=== PATIENT | female | born 1960 | race Caucasian/White ===

== ENCOUNTER 2022-06-27 13:58 | Inpatient (IN) | payer MEDICARE, BC, OTHER ==
[~2022-06-27] VITALS: Ht 175.3 cm; Wt 96.2 kg
--- NOTE | 2022-06-27 14:13 | NUR ---
BIB FAMILY C/O DIZZINESS STATING THAT SHE HAS BEEN VOMITTING BLOOD 3 TIMES SINCE THIS MORNING AT 0900 AND HAVING BLOODY STOOL. PT ATTACHED TO MONITOR AND HYPOTENSIVE, MD DICK. PT STATED THAT SHE HAS STAGE 4 BREAST CANCER, UCURRENTLY TAKING A BREAK FROM CHEMO AND HASNT RECEIVED CHEMO FOR 3 WEEKS. AWAITING MD ORDERS.
--- NOTE | 2022-06-27 14:17 | NUR ---
IV ETSABLISHED L AC 20G. LABS DRAWN AND SENT
[2022-06-27] MEDS ORDERED: ONDANSETRON HCL/PF 4 MG/2 ML VIAL ONE ×2 (14:18→15:16)
--- NOTE | 2022-06-27 14:22 | NUR ---
ADDITIONAL IV ESTBLISHED R CELSO 20G. TERESSA COLLECTED AND SENT.
[2022-06-27] MEDS ORDERED: PANTOPRAZOLE 40 MG VIAL ONE (14:25)
[2022-06-27] MEDS ORDERED: IV NS 0.9% 1,000 ML BAG IV ONE ×2 (14:30→15:00)
[2022-06-27] MEDS ORDERED: PANTOPRAZOLE 40 MG VIAL IV ONE (14:30)
[2022-06-27] MEDS ORDERED: ONDANSETRON HCL/PF 4 MG/2 ML VIAL IVP ONE (14:30)
[2022-06-27 14:31] LABS: BASOPHILS % (AUTO) 0.2 % (0.0-2.0); EOSINOPHILS % (AUTO) 0.5 % (0.0-6.0); HEMATOCRIT 28 % (33-45); HEMOGLOBIN 8.8 g/dL (11.5-14.8); LYMPHOCYTES # (AUTO) 2.4 K/uL (0.8-4.8); LYMPHOCYTES % (AUTO) 21.4 % (20.0-44.0); MEAN CORPUSCULAR HGB CONC 31 g/dl (31.0-36.0); MEAN CORPUSCULAR VOLUME 84 fL (82-100); MONOCYTES # (AUTO) 0.8 K/uL (0.1-1.30); MONOCYTES % (AUTO) 7.4 % (2.0-12.0); NEUTROPHILS # (AUTO) 7.8 K/uL (1.8-8.9); NEUTROPHILS % (AUTO) 70.5 % (43.0-81.0); PLATELET COUNT (AUTO) 191 K/uL (150-450); RED BLOOD CELL COUNT(AUTO) 3.33 MIL/uL (4.0-5.2)
--- NOTE | 2022-06-27 14:37 | NUR ---
PT TAKEN TO CT VIA ERICH
[2022-06-27 14:44] LABS: CALCIUM, SERUM 8.2 mg/dL (8.5-10.1); CARBON DIOXIDE 22 mmol/L (21-32); CHLORIDE 112 mmol/L (98-107); CREATININE 0.9 mg/dL (0.6-1.3); GLUCOSE 140 mg/dL (74-106); POTASSIUM 3.8 mmol/L (3.5-5.1); SODIUM SERUM 143 mmol/L (136-145); UREA NITROGEN, BLOOD 44 mg/dL (7-18)
[2022-06-27 14:50] LABS: ALBUMIN 3.2 g/dL (3.4-5.0); ALKALINE PHOSPHATASE 66 U/L (46-116); ASPARTATE AMINOTRANSFERASE 31 U/L (15-37); BILIRUBIN,DIRECT 0.2 mg/dL (0.0-0.2); BILIRUBIN,TOTAL 0.6 mg/dL (0.2-1.0); LIPASE 333 U/L (73-393); TOTAL PROTEIN, SERUM 7.2 g/dL (6.4-8.2)
[2022-06-27 15:23] LABS: ALANINE AMINOTRANSFERASE 25 U/L (12-78)
[2022-06-27] MEDS ORDERED: MAG HYDROX/AL HYDROX/SIMETH 30 ML UDC PO PRN (16:00)
[2022-06-27] MEDS ORDERED: ONDANSETRON HCL/PF 4 MG/2 ML VIAL IVP PRN (16:00)
[2022-06-27] MEDS ORDERED: ACETAMINOPHEN 325 MG TABLET PO PRN (16:00)
[2022-06-27] MEDS ORDERED: MAGNESIUM HYDROXIDE 30 ML UDC PO PRN (16:00)
[2022-06-27] MEDS ORDERED: ZOLPIDEM TARTRATE 5 MG TABLET PO PRN (16:00)
[2022-06-27] MEDS ORDERED: Z GUARD REMEDY 4 OZ OINT TP PRN (16:00)
[2022-06-27 16:18] LABS: HEMOGLOBIN 7.8 g/dL (11.5-14.8)
[2022-06-27] MEDS ORDERED: NOREPINEPHRINE 8 MG in IV NS 0.9% 242 ML IV PRN (16:30)
--- NOTE | 2022-06-27 17:05 | NUR ---
ROOM GIVEN 262, READY IN 30 MINUTES
--- NOTE | 2022-06-27 17:59 | NUR ---
REPORT GIVEN DANNY FOR CANDIDA
--- NOTE | 2022-06-27 18:46 | NUR ---
PT TRANSFERRED TO ICU WITH ACLS PROTOCOLS IN PLACE
[2022-06-27 19:00] VITALS: BP 115/71
[2022-06-27] MEDS: IV NS 0.9% 1,000 ML IV SCH (19:11)
[2022-06-27 19:30] VITALS: BP 115/71
--- NOTE | 2022-06-27 19:30 | NUR ---
ADMITTED 61 YR OLD FEMALE FROM ER WITH A DX OF UPPER GI BLEED. HX INCLUDES SPINAL STENOSIS, BREAST CA STAGE 4 ON CHEMO (3 WKS BREAK, CA METASTASIZED. PATIENT AWAKE. A/O X4. ON RA. NOT IN DISTRESS. CONTINENT. ON NPO STATUS EXCEPT ICE CHIPS. IV ACCESS ON LT UPPER CHEST PERMACATH, RT HAND #20G AND LAC #20G. STARTED TO INFUSE 0.9 NS AT 75 ML/HR. SKIN CHECK PERFORMED, LESION ON THE FOREHEAD. NO WOUND. V/S CHECKED: HR 133, RR 17, SPO2 99%, BP 115/71. CALL LIGHT WITHIN REACH. SAFETY MEASURES IN PLACE. WILL CONTINUE PLAN OF CARE.
[2022-06-27 20:00] VITALS: BP 115/86
[2022-06-27] MEDS: PANTOPRAZOLE 40 MG VIAL IV SCH (20:50)
[2022-06-27 21:00] VITALS: BP 118/70
[2022-06-27 22:00] VITALS: BP 112/68
[2022-06-27 22:27] LABS: HEMOGLOBIN 6.8 g/dL (11.5-14.8)
--- NOTE | 2022-06-27 22:46 | NUR ---
Hgb 6.8. MD NOTIFIED. ORDERED 1 UNIT PRBC. BLOOD TRANSFUSION CONSENT SIGNED. WILL CARRY OUT ORDERED.
[2022-06-27 23:00] VITALS: BP 106/77
[2022-06-28] VITALS (31 sets, daily range): BP systolic 90–138; BP diastolic 34–98
[2022-06-28 05:12] LABS: CALCIUM, SERUM 7.3 mg/dL (8.5-10.1); CREATININE 0.6 mg/dL (0.6-1.3); MAGNESIUM 1.7 mg/dL (1.8-2.4); PHOSPHORUS 1.8 mg/dL (2.5-4.9); POTASSIUM 3.3 mmol/L (3.5-5.1)
[2022-06-28 05:13] LABS: BASOPHILS % (AUTO) 0.2 % (0.0-2.0); EOSINOPHILS % (AUTO) 0.5 % (0.0-6.0); HEMATOCRIT 20 % (33-45); LYMPHOCYTES # (AUTO) 1.5 K/uL (0.8-4.8); LYMPHOCYTES % (AUTO) 16.2 % (20.0-44.0); MEAN CORPUSCULAR HGB CONC 32 g/dl (31.0-36.0); MEAN CORPUSCULAR VOLUME 84 fL (82-100); MONOCYTES # (AUTO) 0.9 K/uL (0.1-1.30); MONOCYTES % (AUTO) 9.4 % (2.0-12.0); NEUTROPHILS # (AUTO) 6.8 K/uL (1.8-8.9); NEUTROPHILS % (AUTO) 73.7 % (43.0-81.0); PLATELET COUNT (AUTO) 106 K/uL (150-450); RED BLOOD CELL COUNT(AUTO) 2.38 MIL/uL (4.0-5.2); WHITE BLOOD COUNT (AUTO) 9.3 K/uL (4.3-11.0)
[2022-06-28 05:15] LABS: HEMOGLOBIN 6.4 g/dL (11.5-14.8)
--- NOTE | 2022-06-28 05:21 | NUR ---
Hgb 6.4. MD NOTIFIED. ORDERED 1 UNIT PRBC EARLIER. BLOOD TRANSFUSION CONSENT SIGNED. WILL CARRY OUT ONCE PRBC IS READY.
[2022-06-28] MEDS: IV NS 0.9% 1,000 ML IV SCH ×2 (05:24→18:37)
--- NOTE | 2022-06-28 06:49 | NUR ---
Blood transfusion started per protocol and as ordered. Pt tolerating well at this time.
--- NOTE | 2022-06-28 07:30 | NUR ---
PATIENT AWAKE. A/O X4. ON RA. NOT IN DISTRESS. CONTINENT. ON NPO STATUS EXCEPT ICE CHIPS. IV ACCESS ON LT UPPER CHEST PERMACATH, RT HAND #20G AND LAC #20G. INFUSING 0.9 NS AT 75 ML/HR. ONGOING BT. NEEDS ATTENDED. DUE MEDS GIVEN. SAFETY MEASURES MAINTAINED. WILL ENDORSE TO NEXT NURSE ON DUTY FOR CONTINUITY OF CARE.
--- NOTE | 2022-06-28 07:57 | NUR ---
LAUNDRY TECH OPENING NOTES: RECEIVED PATIENT ALERT AND AWAKE, A/O X4. ON RA. NOT IN DISTRESS, NO SOB NOTED, RESPIRATION EVEN AND UNLABORED, DENIES ANY PAIN, PATIENT NOTED WITH BLOOD TRANFUSION ON GOING, CHECK VITAL SIGNS T= 98.2, BP 116/66. ON NPO STATUS EXCEPT ICE CHIPS. IV ACCESS ON LT UPPER CHEST PERMACATH, RT HAND #20G AND LAC #20G. INFUSING 0.9 NS AT 75 ML/HR. SAFETY MEASURES IN PLACED. CALL LIGHT AND TABLE WITHIN REACH. PATIENT CONTINENT TO BOWEL AND BLADDER. ORIENTED THE PATIENT TO USE THE CALL LIGHT WHEN NEEDING TO USE THE BEDSIDE COMMODE. PLAN OF CARE CONTINUE. Addendum: 06/28/22 at 1844 by MARTHA MARTINEZ RN CORRECTION: LEFT UPPER CHEST PORTACATH NOTED INTACT.
[2022-06-28] MEDS: PANTOPRAZOLE 40 MG VIAL IV SCH ×2 (08:14→20:25)
--- NOTE | 2022-06-28 09:09 | NUR ---
RECEIVED NEW ORDER FROM DR. JJ, CHANGED DIET FROM NPO TO CLEAR LIQUID DIET AND HEMOGLOBIN AND HEMATOCRIT Q6HR, NOTED AND CARRIED OUT.
--- NOTE | 2022-06-28 09:33 | NUR ---
BLOOD TRANSFUSION DONE, NO BLOOD TRANSFUSION REACTION NOTED, VS STABLE, PATIENT NOTED EATING BREAKFAST, PATIENT ALERT AND VERBALLY RESPONSIVE, NO NAUSEA/VOMITING NOTED.
[2022-06-28] MEDS ORDERED: CAPE500T15 PO (10:20)
[2022-06-28] MEDS ORDERED: LORA-258 PO (10:20)
[2022-06-28] MEDS ORDERED: ONDA8TAB65 PO (10:20)
[2022-06-28 10:26] LABS: BAND % (MANUAL) 3 % (0.0-5.0); BASOPHILS % (MANUAL) 0 % (0.0-2.0); EOSINOPHILS % (MANUAL) 0 % (0-4); LYMPHOCYTES % (MANUAL) 14 % (16-48); MONOCYTES % (MANUAL) 4 % (0-11.0); NEUTROPHILS % (MANUAL) 79 (42-76)
[2022-06-28] MEDS ORDERED: POTASSIUM CHLORIDE 20 MEQ POWDER PACKET PO ONE (11:00)
[2022-06-28] MEDS ORDERED: LORAZEPAM 0.5 MG TABLET PO PRN (11:00)
[2022-06-28] MEDS: Magnesium 1GM/D5W 100ML PREMIX 100 ML IV SCH ×2 (11:05→12:06)
[2022-06-28] MEDS ORDERED: NEUTRA PHOS 1 POWD.PACKET NG ONE (11:30)
--- NOTE | 2022-06-28 12:49 | NUR ---
INFORMED DR. SIMMONS THAT PATIENT IS WAITING FOR HER, PER PATIENT IF THE DOCTOR WILL NOT COME TODAY I MIGHT LEAVE THE HOSPITAL, INFORMED DR. SIMMONS AND DR. JJ, CHARGE NURSE JOSHUA IS AWARE, NO RESPOND FROM DR. SIMMONS, PER DR. JJ PATIENT CAN'T COME HOME TODAY DUE TO PATIENT WILL BE NEEDING TO DO EGD, INFORMED PATIENT AND VERBALIZED UNDERSTANDING, BUT PATIENT STATED SHE REALLY WANTS TO SPEAK WITH THE GI DOCTOR, INFORMED DR. SIMMONS AWAITING FOR RESPOND.
[2022-06-28 16:03] LABS: HEMOGLOBIN 7.4 g/dL (11.5-14.8)
--- NOTE | 2022-06-28 17:30 | NUR ---
INFORMED PATIENT THAT DR. SIMMONS IS NOT COMING IN TODAY TO SEE HER, PER PATIENT SHE WILL STAY TONIGHT AND WILL TALK TO DR. JJ TOMORROW MORNING, PATIENT NO EPISODE OF NAUSEA OR VOMITING OF BLOOD. EDUCATE THE PATIENT OF IMPORTANCE OF STAYING IN THE HOSPITAL FOR OBSERVATION, PATIENT CONFIRMED UNDERSTANDING, INFORMED OF THE H&H RESULTS.
--- NOTE | 2022-06-28 18:35 | NUR ---
UA COLLECTED AND PLACED IN THE FRIDGE, CALLED LAB. FOR PLATE SENSITIZER.
--- NOTE | 2022-06-28 18:44 | NUR ---
BUSINESS LIBRARIAN OPENING NOTES: PATIENT SITTING UP ON THE CHAIR, FRIEND AT THE BEDSIDE, ALERT AND AWAKE, A/O X4. ON RA. NOT IN DISTRESS, NO SOB NOTED, RESPIRATION EVEN AND UNLABORED, DENIES ANY PAIN. IV ACCESS ON LT UPPER CHEST PORTACATH. NOTED PIV ON RT HAND #20G AND LAC #20G. INFUSING 0.9 NS AT 75 ML/HR. NO NAUSEA OR VOMITING NOTED, NO DIARRHEA. SAFETY MEASURES IN PLACED. CALL LIGHT AND TABLE WITHIN REACH. PATIENT CONTINENT TO BOWEL AND BLADDER. ORIENTED THE PATIENT TO USE THE CALL LIGHT WHEN NEEDING TO USE THE BEDSIDE COMMODE. WILL ENDORSE TO NIGHT NURSE FOR CANDIDA. Addendum: 06/29/22 at 0736 by MARTHA MARTINEZ RN ICU CLOSING NOTES
[2022-06-28 19:13] LABS: BILIRUBIN,URINE NEGATIVE (NEGATIVE); COLOR,URINE YELLOW (YELLOW); LEUKOCYTE ESTERASE ,URINE 2+ (NEGATIVE); NITRITE, URINE NEGATIVE (NEGATIVE); PROTEIN,URINE NEGATIVE (NEGATIVE); UGLUCOSE NEGATIVE (NEGATIVE); UROBILINOGEN,URINE 0.2 EU/dL (0.2)
[2022-06-28 19:29] LABS: BACTERIA,URINE Few /HPF (None Seen); SQUAMOUS EPITHELIAL CELL,UR Few /HPF (None Seen); WBC,URINE 0-2 /HPF (0-3)
--- NOTE | 2022-06-28 19:30 | NUR ---
PATIENT AWAKE SITTING UP ON THE CHAIR, FRIEND AT THE BEDSIDE. A/O X4. ON RA. NOT IN DISTRESS, RESPIRATION EVEN AND UNLABORED, DENIES ANY PAIN. IV ACCESS ON LT UPPER CHEST PORTACATH. NOTED PIV ON RT HAND #20G AND LAC #20G. INFUSING 0.9 NS AT 75 ML/HR. PATIENT CONTINENT TO BOWEL AND BLADDER. COMMODE AT BEDSIDE. SAFETY MEASURES IN PLACE. CALL LIGHT AND TABLE WITHIN REACH. WILL CONTINUE PLAN OF CARE.
[2022-06-28 22:30] LABS: HEMOGLOBIN 6.6 g/dL (11.5-14.8)
--- NOTE | 2022-06-28 22:57 | NUR ---
Hgb 6.6; Hct 21. MD notified. Ordered 1 Unit PRBC. Will carry out as ordered once blood is ready.
[2022-06-29] VITALS (33 sets, daily range): BP systolic 94–133; BP diastolic 48–82
[2022-06-29 04:08] LABS: BASOPHILS % (AUTO) 0.4 % (0.0-2.0); LYMPHOCYTES # (AUTO) 0.9 K/uL (0.8-4.8); LYMPHOCYTES % (AUTO) 23.8 % (20.0-44.0); MEAN CORPUSCULAR HGB CONC 32 g/dl (31.0-36.0); MEAN CORPUSCULAR VOLUME 84 fL (82-100); MONOCYTES # (AUTO) 0.4 K/uL (0.1-1.30); MONOCYTES % (AUTO) 9.8 % (2.0-12.0); NEUTROPHILS # (AUTO) 2.5 K/uL (1.8-8.9); PLATELET COUNT (AUTO) 81 K/uL (150-450); RED BLOOD CELL COUNT(AUTO) 2.44 MIL/uL (4.0-5.2)
[2022-06-29 04:17] LABS: HEMATOCRIT 20 % (33-45); HEMOGLOBIN 6.6 g/dL (11.5-14.8)
[2022-06-29 04:22] LABS: CALCIUM, SERUM 6.8 mg/dL (8.5-10.1); CREATININE 0.4 mg/dL (0.6-1.3); MAGNESIUM 2.1 mg/dL (1.8-2.4); PHOSPHORUS 1.5 mg/dL (2.5-4.9); POTASSIUM 3.3 mmol/L (3.5-5.1)
--- NOTE | 2022-06-29 04:30 | NUR ---
Hgb 6.6; Hct 20. notified. 1 Unit PRBC ready. Will carry out as ordered.
--- NOTE | 2022-06-29 04:40 | NUR ---
Blood transfusion 1 Unit PRBC started per protocol and as ordered. Pt tolerating well at this time. VS stable.
[2022-06-29] MEDS: IV NS 0.9% 1,000 ML IV SCH ×2 (07:13→22:05)
--- NOTE | 2022-06-29 07:36 | NUR ---
TRAFFIC OBSERVER OPENING NOTES: RECEIVED PATIENT IN BED AWAKE, S/P BLOOD TRANSFUSION, ALERT AND AWAKE, A/O X4. ON RA, NOT IN DISTRESS, NO SOB NOTED, RESPIRATION EVEN AND UNLABORED, DENIES ANY PAIN AT THIS MOMENT. LT UPPER CHEST PORTACATH, NOTED INTACT. NOTED PIV ON RT HAND #20G AND LAC #20G. INFUSING 0.9 NS AT 75 ML/HR. NO NAUSEA OR VOMITING NOTED , NO DIARRHEA. SAFETY MEASURES IN PLACED. CALL LIGHT AND TABLE WITHIN REACH. PATIENT CONTINENT TO BOWEL AND BLADDER. ORIENTED THE PATIENT TO USE THE CALL LIGHT WHEN NEEDING TO USE THE BEDSIDE COMMODE.PLAN OF CARE CONTINUE.
--- NOTE | 2022-06-29 07:37 | NUR ---
PATIENT AWAKE IN BED. AROUSABLE/RESPONSIVE. A/O X4. ON RA. NOT IN DISTRESS, RESPIRATION EVEN AND UNLABORED, DENIES ANY PAIN. NPO SINCE MIDNIGHT. IV ACCESS ON LT UPPER CHEST PORTACATH. HAS PIV ON RT HAND #20G AND LAC #20G. INFUSING 0.9 NS AT 75 ML/HR. TRANSFUSED 1 UNIT PRBC. PATIENT CONTINENT TO BOWEL AND BLADDER. COMMODE AT BEDSIDE. NEEDS ATTENDED. DUE MEDS GIVEN. SAFETY MEASURES MAINTAINED. CALL LIGHT AND TABLE WITHIN REACH. WILL ENDORSE TO NEXT NURSE ON DUTY FOR CONTINUITY OF CARE.
[2022-06-29] MEDS: PANTOPRAZOLE 40 MG VIAL IV SCH (08:09)
[2022-06-29] MEDS ORDERED: PANTOPRAZOLE 40 MG/PACK PACK PO SCH (09:00)
--- NOTE | 2022-06-29 09:02 | NUR ---
DR. JJ AT BEDSIDE, PATIENT CAN BE ON CLEAR LIQUID DIET, NOTED AND CARRIED OUT. DR. JJ TALKED TO THE PATIENT REGARDING DR. SIMMONS WILL BE HERE LATER. WILL FOLLOW UP AGAIN LATER.
[2022-06-29] MEDS ORDERED: POTASSIUM CHLORIDE 20 MEQ POWDER PACKET PO ONE (09:30)
[2022-06-29] MEDS ORDERED: NEUTRA PHOS 1 POWD.PACKET NG ONE (10:00)
[2022-06-29] MEDS ORDERED: NEUTRA PHOS 1 POWD.PACKET PO ONE (11:00)
[2022-06-29 11:09] LABS: HEMOGLOBIN 8.3 g/dL (11.5-14.8)
--- NOTE | 2022-06-29 12:21 | NUR ---
FOLLOW UP DR. SIMMONS IF HE WILL SEE THE PATIENT TODAY, PATIENT AND FAMILY MEMBER IS ASKING AND ANXIOUS, INFORMED DR. SIMMONS AWAITING FOR RESPOND. NOTED PATIENT BLOOD IN THE STOOL PER PATIENT, INFORMED DR. JJ NO NEW ORDER. NO EPISODE OF VOMITING.
--- NOTE | 2022-06-29 14:43 | NUR ---
RECEIVED A CALL FROM SURGERY DEPARTMENT, THAT PATIENT WILL HAVE EGD TONIGHT AT 1930H. INFORMED CHARGE NURSE DASHA AND PATIENT. PUT PATIENT NPO AT THIS MOMENT.
[2022-06-29 16:19] LABS: EOSINOPHILS % (MANUAL) 2 % (0-4); LYMPHOCYTES % (MANUAL) 25 % (16-48); MONOCYTES % (MANUAL) 8 % (0-11.0); NEUTROPHILS % (MANUAL) 65 (42-76)
[2022-06-29 17:53] LABS: HEMOGLOBIN 7.8 g/dL (11.5-14.8)
--- NOTE | 2022-06-29 18:20 | NUR ---
WET END HELPER CLOSING NOTES: PATIENT IN BED AWAKE, WATCHING TV, A/O X4. ON RA, NOT IN DISTRESS, NO SOB NOTED, RESPIRATION EVEN AND UNLABORED, DENIES ANY PAIN AT THIS MOMENT. LT UPPER CHEST PORTACATH, NOTED INTACT. NOTED PIV ON RT HAND #20G AND LAC #20G. INFUSING 0.9 NS AT 75 ML/HR. NO NAUSEA OR VOMITING NOTED AT THIS MOMENT. NO DIARRHEA. SAFETY MEASURES IN PLACED. CALL LIGHT AND TABLE WITHIN REACH. PATIENT CONTINENT TO BOWEL AND BLADDER. WILL ENDORSE TO NIGHT NURSE FOR CANDIDA.
--- NOTE | 2022-06-29 19:15 | NUR ---
DR. SIMMONS AND HAND REAMER AT THE BEDSIDE, EXPLAINED THE PROCEDURE TO THE PATIENT. GAVE REPORT TO GAYLA HEIN FOR CANDIDA, PLACED 2 PHONES AT THE BEDSIDE DRAWER.
[2022-06-29] MEDS: PANTOPRAZOLE 40 MG/PACK PACK PO SCH (22:02)
[2022-06-29] MEDS ORDERED: CEFTRIAXONE 1 G in IV D5W 50 ML IV SCH (22:30)
[2022-06-29] MEDS ORDERED: LEVOFLOXACIN 750 MG /D5W 150ML 150 ML IV ONE (23:13)
[2022-06-29 23:29] LABS: HEMOGLOBIN 7.6 g/dL (11.5-14.8)
[2022-06-29] MEDS: LEVOFLOXACIN 750 MG /D5W 150ML 750 MG in PREMIX 1 EA IV SCH (23:30)
[2022-06-30] VITALS (22 sets, daily range): BP systolic 76–132; BP diastolic 54–97
[2022-06-30 05:17] LABS: BASOPHILS # (AUTO) 0.1 K/uL (0.0-0.2); EOSINOPHILS % (AUTO) 2.7 % (0.0-6.0); HEMATOCRIT 23 % (33-45); HEMOGLOBIN 7.7 g/dL (11.5-14.8); LYMPHOCYTES # (AUTO) 0.5 K/uL (0.8-4.8); LYMPHOCYTES % (AUTO) 14.8 % (20.0-44.0); MEAN CORPUSCULAR HGB CONC 33 g/dl (31.0-36.0); MEAN CORPUSCULAR VOLUME 84 fL (82-100); MONOCYTES # (AUTO) 0.2 K/uL (0.1-1.30); MONOCYTES % (AUTO) 7.3 % (2.0-12.0); NEUTROPHILS # (AUTO) 2.4 K/uL (1.8-8.9); NEUTROPHILS % (AUTO) 73.2 % (43.0-81.0); PLATELET COUNT (AUTO) 73 K/uL (150-450); RED BLOOD CELL COUNT(AUTO) 2.79 MIL/uL (4.0-5.2); WHITE BLOOD COUNT (AUTO) 3.3 K/uL (4.3-11.0)
[2022-06-30 05:43] LABS: CREATININE 0.4 mg/dL (0.6-1.3); PHOSPHORUS 1.5 mg/dL (2.5-4.9); POTASSIUM 3.5 mmol/L (3.5-5.1)
--- NOTE | 2022-06-30 06:49 | NUR ---
END OF SHIFT SUMMARY Received patient post EGD. She is alert and oriented x4. Very cooperative with her care. Pt denies pain at this time. No sign of bleeding observed. Pt has a relatively uneventful night. Vital signs stable at change of shift. Report endorsed to dayshift RN.
[2022-06-30] MEDS: OCTREOTIDE 1,250 MCG in IV NS 0.9% 247.5 ML IV PRN (07:56)
[2022-06-30] MEDS: PANTOPRAZOLE 40 MG/PACK PACK PO SCH ×2 (08:49→21:36)
[2022-06-30] MEDS ORDERED: NEUTRA PHOS 1 POWD.PACKET PO ONE (10:00)
[2022-06-30] MEDS: IV NS 0.9% 1,000 ML IV PRN (10:31)
[2022-06-30 10:53] LABS: BAND % (MANUAL) 1 % (0.0-5.0); EOSINOPHILS % (MANUAL) 1 % (0-4); LYMPHOCYTES % (MANUAL) 12 % (16-48); METAMYELOCYTES % 2 % (0-0); MONOCYTES % (MANUAL) 5 % (0-11.0); NEUTROPHILS % (MANUAL) 79 (42-76)
--- NOTE | 2022-06-30 13:25 | NUR ---
PATIENT REMAINS STABLE, VS STABLE; NO SSX OF ACUTE DISTRESS NOTED; TIARRA ParedesRN PICKED-UP PATIENT VIA BED AND ON TELE-MONITOR AND BEDSIDE REPORT WAS GIVEN TO TIARRA FOR CONTINUITY OF CARE. PATIENT WILL BE TAKEN TO TELE UNIT RM [id number] 1. CHARGE NURSE-JULIENNE HEMPHILL.
--- NOTE | 2022-06-30 13:40 | NUR ---
RN NOTE RECEIVED PATIENT FROM ICU, ARRIVED WITH ERICH, PT IS ON EXTERNAL PROCESS IMPROVEMENT SPECIALIST. VS TAKEN, BP 115/77, P 84, RR 19, TEMP 97.9, O2 98% ON RA. BREATHING EVEN AND NON LABORED. SAFETY MEASURES ARE IN PLACED: BED IN LOWEST AND LOCKED POSITION; SIDE RAILS UP X 2; BED ALARM IS SET; CALL LIGHT AND TABLE ARE WITHIN REACH. WILL CONTINUE MONITORING THE PT AND PROVIDE THE CARE PT NEEDS.
--- NOTE | 2022-06-30 18:45 | NUR ---
CAMP ATTENDANT CLOSING NOTE PT RESTING IN BED, A/OX4, ABLE TO MAKE NEEDS KNOWN. ON RA BREATHING EVEN AND NON LABORED. NO S/S OF ACUTE DISTRESS NOTE AT THIS TIME. PT IS ON EXTERNAL CUSTODIAN ATHLETIC EQUIPMENT READING SR @ 98 BPM. IV ACCESS R HAND #20G, INTACT AND PATENT, RUNNING NS @75ML/HR. SAFETY MEASURES ARE IN PLACED: BED IN LOWEST AND LOCKED POSITION; SIDE RAILS UP X 2; BED ALARM IS SET; CALL LIGHT AND TABLE ARE WITHIN REACH. WILL ENDORSE TO ONCOMING NURSE FOR CANDIDA.
--- NOTE | 2022-06-30 19:15 | NUR ---
ADVISORY APPLICATION DEVELOPER OPENING NOTE RECEIVED PATIENT IN BED; AWAKE, ALERT AND ORIENTED X 4. ON ROOM AIR; TOLERATING WELL. AFEBRILE. BREATHING EVEN AND NONLABORED. ON EXTERNAL CARDIAC MONITORING WHICH READS SR HR-88 BPM. WITH IV ACCESS ON RIGHT HAND 20g; PATENT AND INTACT RUNNING WITH NS 1L REGULATED @ 75 ML/HR; FLUSHES WELL. ABLE TO MAKE NEEDS KNOWN. SAFETY PRECAUTIONS IMPLEMENTED: CALL LIGHT AND TABLE WITHIN REACH, SIDE RAILS UP X 2, BED IN LOWEST LOCKED POSITION. WILL CONTINUE TO MONITOR THROUGHOUT SHIFT.
--- NOTE | 2022-06-30 19:32 | NUR ---
RN NOTE PATIENT COMPLAINED OF HEADACHE AND REQUESTED MEDICATION. PRN TYLENOL 650 MG GIVEN PO ORDERED. WILL CONTINUE TO MONITOR.
[2022-06-30] MEDS: LEVOFLOXACIN 750 MG /D5W 150ML 750 MG in PREMIX 1 EA IV SCH (22:20)
[2022-07-01] VITALS: BP 97/56
[2022-07-01] MEDS: IV NS 0.9% 1,000 ML IV PRN (03:13)
[2022-07-01 04:00] VITALS: BP 97/45
--- NOTE | 2022-07-01 06:50 | NUR ---
WORKING SUPERVISOR CLOSING NOTE PATIENT IN BED; AWAKE, A/O X 4. STABLE ON ROOM AIR. AFEBRILE. BREATHING EVEN AND NONLABORED. ON EXTERNAL CARDIAC MONITORING WHICH READS SR HR-86 BPM. WITH IV ACCESS ON RIGHT HAND 20g; PATENT AND INTACT RUNNING WITH NS 1L REGULATED @ 75 ML/HR; FLUSHES WELL. ALL DUE MEDS GIVEN ORDERED. SAFETY PRECAUTIONS MAINTAINED: CALL LIGHT AND TABLE WITHIN REACH, SIDE RAILS UP X 2, BED IN LOWEST LOCKED POSITION. ENDORSED TO MORNING SHIFT FOR CANDIDA.
--- NOTE | 2022-07-01 07:30 | NUR ---
HIDE HANDLER OPENING NOTES RECEIVED PATIENT ON BED AWAKE AND A/O X4. ON ROOM AIR TOLERATING WELL. NO SOB NOTED. NOT IN DISTRESS. WITH NO COMPLAINTS OF PAIN OR DISCOMFORT AT THIS TIME. S/P EGD ESOPHAGEAL VARICES WITH BANDING. NO BLEEDING NOTED. ON TELE MONITOR CURRENTLY READING SINUS RHYTHM AT 85BPM. WITH IV ACCESS AT THE RIGHT HAND G20 WITH NS AT 75ML/HR INFUSING WELL. SAFETY MEASURES IN PLACED. CALL LIGHT WITHIN REACH. BED ON LOWEST LOCKED POSITION, SIDE RAILS UP X2. WILL CONTINUE TO MONITOR.
[2022-07-01] MEDS: PANTOPRAZOLE 40 MG/PACK PACK PO SCH (08:24)
[2022-07-01] MEDS: OCTREOTIDE 1,250 MCG in IV NS 0.9% 247.5 ML IV PRN (08:24)
[2022-07-01] MEDS ORDERED: PANT40TA2 PO (09:45)
[2022-07-01] MEDS ORDERED: NEUTRA PHOS 1 POWD.PACKET PO ONE (12:00)
--- NOTE | 2022-07-01 14:00 | NUR ---
TELEPHONE INSTRUMENT SUPERVISOR NOTES PATIENT WAS ORDERED BY DR. JJ FOR DISCHARGE TO HOME. DISCHARGE INSTRUCTION AND MEDICATION INSTRUCTION PROVIDED. PATIENT VERBALIZED UNDERSTANDING. DISCHARGE AND BELONGINGS LIST FORM SIGNED BY PATIENT. REMOVED IV LINE AND NAME WRIST BAND. ACCOMPANIED PATIENT TO THE LOBBY VIA WHEELCHAIR AND WAS PICKED UP BY HER FRIEND IN STABLE CONDITION AND LEFT VIA PRIVATE CAR. MD AND CHARGE NURSE ARE AWARE OF THE DISCHARGE.
== END 2022-07-01 14:06 | disposition home or self-care (01) | DRG 368 ==
LOC: ER 14:00 → ICU 17:10 → TELE 06-30 13:25
PROVIDERS: ADMIT Nurse Practitioner Acute Care; ATTEND Internal Medicine
PROC: 30233N1 Transfusion of Nonautologous Red Blood Cells into Peripheral Vein, Percutaneous Approach (ICD-10-PCS; 2022-06-27)
PROC: 06L38CZ Occlusion of Esophageal Vein with Extraluminal Device, Via Natural or Artificial Opening Endoscopic (ICD-10-PCS; principal; 2022-06-29)
DX: I85.01 Esophageal varices with bleeding (principal); N17.0 Acute kidney failure with tubular necrosis; D62 Acute posthemorrhagic anemia; E44.1 Mild protein-calorie malnutrition; E86.1 Hypovolemia; K31.9 Disease of stomach and duodenum, unspecified; Z85.3 Personal history of malignant neoplasm of breast; Z92.21 Personal history of antineoplastic chemotherapy; M19.90 Unspecified osteoarthritis, unspecified site; Z88.0 Allergy status to penicillin; M48.00 Spinal stenosis, site unspecified; Z79.899 Other long term (current) drug therapy; E88.09 Other disorders of plasma-protein metabolism, not elsewhere classified; R19.09 Other intra-abdominal and pelvic swelling, mass and lump; K63.89 Other specified diseases of intestine; K76.89 Other specified diseases of liver; E66.9 Obesity, unspecified; Z68.31 Body mass index [BMI] 31.0-31.9, adult; K57.90 Diverticulosis of intestine, part unspecified, without perforation or abscess without bleeding; E87.6 Hypokalemia; Z87.19 Personal history of other diseases of the digestive system; D69.6 Thrombocytopenia, unspecified; Z98.84 Bariatric surgery status
CPT/HCPCS: 36415; 71045-TC; 76770-TC; 80048-TC; 80076-TC; 81001; 83690-TC; 83735-TC; 84100-TC; 84484-TC; 85025-TC; 85027-TC; 85730-TC; 86850-TC; 87081-TC; 87086-TC; A4216; A4223; C9113; C9803; G0378; J0696; J1956; J2354; J2405; J2704; J3475; J7030; J7050; J7060; P9016